=== PATIENT | male | born 1955 | race Caucasian/White ===

== ENCOUNTER 2024-09-10 13:31 | Inpatient (IN) | payer MEDICARE ==
[~2024-09-10] VITALS: Ht 175.3 cm; Wt 82.2 kg
[2024-09-10] MEDS ORDERED: ATEN-72 PO (13:40)
[2024-09-10] MEDS ORDERED: LISI-894 PO (13:40)
[2024-09-10] MEDS ORDERED: AMLO-258 PO (13:40)
[2024-09-10 14:53] LABS: HEMATOCRIT 35.9 % (41-53); HEMOGLOBIN 11.8 g/dL (13.5-17.5); MEAN CORPUSCULAR HGB CONC 32.9 G/dL (31.0-37.0); MEAN CORPUSCULAR VOLUME 88 fL (80-100); PLATELET COUNT (AUTO) 679 K/uL (150-450); RED BLOOD CELL COUNT(AUTO) 4.07 MIL/uL (4.50-5.90); RED CELL DISTRIBUTION WIDTH 14.1 % (11.5-14.5); WHITE BLOOD COUNT (AUTO) 22.6 K/uL (4.5-11.0)
[2024-09-10 15:13] LABS: CALCIUM, TOTAL 9.2 mg/dL (8.8-10.5); CREATININE 1.42 mg/dL (0.60-1.30); POTASSIUM 4.3 mmol/L (3.5-5.1)
[2024-09-10 15:16] LABS: TROPONIN I-HIGH SENSITIVITY 6 ng/L (<76)
[2024-09-10 15:17] LABS: BAND NEUTROPHILS % (MANUAL) 2 % (0-5); LYMPHOCYTES % (MANUAL) 7 % (22-44); MONOCYTES % (MANUAL) 8 % (2-9); PLATELET MORPHOLOGY COMMENT GIANT PLTS PRESENT; SEGMENTED NEUTROPHILS % 83 % (40-70); TOTAL CELLS COUNTED 100
[2024-09-10 15:18] LABS: RBC MORPHOLOGY COMMENT NORMAL RBC MORPH
[2024-09-10 15:19] LABS: ALBUMIN 2.2 g/dL (3.4-5.0); BILIRUBIN,TOTAL 0.6 mg/dL (0.1-1.0); TOTAL PROTEIN, SERUM 7.9 g/dL (6.4-8.2)
[2024-09-10 16:15] LABS: APPEARANCE,URINE CLEAR (CLEAR); BILIRUBIN,URINE NEGATIVE (NEGATIVE); COLOR,URINE YELLOW (YELLOW); GLUCOSE, URINE (UA) NEGATIVE (NEGATIVE); KETONES,URINE NEGATIVE (NEGATIVE); LEUKOCYTE ESTERASE ,URINE NEGATIVE (NEGATIVE); NITRATE,URINE NEGATIVE (NEGATIVE); OCCULT BLOOD,URINE NEGATIVE (NEGATIVE); PH,URINE 5.5 (5.0-8.0); PROTEIN,URINE TRACE mg/dL (NEGATIVE); SPECIFIC GRAVITIY, URINE 1.015 (1.003-1.030)
[2024-09-10] MEDS ORDERED: ONDANSETRON HCL 4 MG/2 ML VIAL IVP PRN (16:30)
[2024-09-10] MEDS ORDERED: 0.9% SODIUM CHLORIDE 10 ML SYRINGE IVP PRN (16:30)
[2024-09-10] MEDS: CefTRIAXone 1 GM/DEXTROSE 50 ML IV SCH (17:00)
[2024-09-10 17:04] LABS: GLUCOSE,RANDOM 121 mg/dL (70-110); LACTATE DEHYDROGENASE 124 U/L (85-227)
[2024-09-10] MEDS: SODIUM CHLORIDE 0.9% 500 ML IV ONE (17:04)
[2024-09-10] MEDS: AZITHROMYCIN 500 MG/NS 250 ML IV ONE (17:05)
[2024-09-10 17:08] LABS: LACTIC ACID 1.8 mmol/L (0.4-2.0)
[2024-09-10 18:21] VITALS: BP 115/62; PULSE 83; RESP 18; TEMP 97.7; O2SAT 97
[2024-09-10 19:27] LABS: TROPONIN I-HIGH SENSITIVITY 4 ng/L (<76)
[2024-09-10 20:17] VITALS: BP 92/61; PULSE 69; RESP 18; TEMP 98.7; O2SAT 95
[2024-09-10] MEDS: DOCUSATE SODIUM 100 MG CAPSULE PO SCH (20:49)
[2024-09-10] MEDS: RINGERS SOLUTION,LACTATED 1,000 ML IV SCH (22:28)
[2024-09-11] VITALS (15 sets, daily range): BP systolic 97–119; BP diastolic 65–74; PULSE 67–93; RESP 18–20; TEMP 97.6–98.6; O2SAT 93–99
[2024-09-11] MEDS: HEPARIN SODIUM,PORCINE 5,000 UNITS/ML VIAL SQ SCH (00:04)
[2024-09-11] MEDS: ACETAMINOPHEN 325 MG TABLET PO PRN (05:01)
[2024-09-11 06:26] LABS: BASOPHILS % (AUTO) 0.3 % (0.0-2.0); EOSINOPHILS % (AUTO) 0.3 % (1.0-6.0); HEMATOCRIT 33.3 % (41-53); LYMPHOCYTES % (AUTO) 6.1 % (22.0-44.0); MEAN CORPUSCULAR HEMOGLOBIN 29.1 pg (26.0-34.0); MEAN CORPUSCULAR HGB CONC 33.1 G/dL (31.0-37.0); MEAN CORPUSCULAR VOLUME 88 fL (80-100); MONOCYTES # (AUTO) 1.4 K/uL (0.1-1.0); MONOCYTES % (AUTO) 8.2 % (2.0-9.0); NEUTROPHILS # (AUTO) 14.5 K/uL (1.8-7.7); NEUTROPHILS % (AUTO) 85.1 % (40.0-70.0); PLATELET COUNT (AUTO) 568 K/uL (150-450); RED BLOOD CELL COUNT(AUTO) 3.77 MIL/uL (4.50-5.90); RED CELL DISTRIBUTION WIDTH 14.4 % (11.5-14.5)
[2024-09-11] MEDS: ALBUTEROL SULFATE 2.5 MG/0.5 ML NEB SOLUTION NEB PRN (06:45)
[2024-09-11] MEDS: IPRATROPIUM BROMIDE 0.5 MG/2.5 ML NEB SOLUTION NEB PRN (06:46)
[2024-09-11] MEDS: ATENOLOL 50 MG TABLET PO SCH (08:38)
[2024-09-11] MEDS: AmLODIPine BESYLATE 10 MG TABLET PO SCH (08:38)
[2024-09-11] MEDS ORDERED: NALOXONE HCL 0.4 MG/ML VIAL IVP PRN (09:00)
[2024-09-11] MEDS ORDERED: MORPHINE SULFATE 2 MG/ML SYRINGE IVP PRN (09:00)
[2024-09-11 09:37] LABS: ANION GAP 13 mmol/L (8-16); CALCIUM, TOTAL 8.7 mg/dL (8.8-10.5); CARBON DIOXIDE 21 mmol/L (22-29); CHLORIDE 93 mmol/L (98-107); CREATININE 1.14 mg/dL (0.60-1.30); GLOMERULAR FILTR. RATE CALC > 60 mL/min (>60); GLUCOSE,RANDOM 111 mg/dL (70-110); POTASSIUM 3.8 mmol/L (3.5-5.1); SODIUM SERUM 127 mmol/L (136-145); UREA NITROGEN, BLOOD 17 mg/dL (7-18)
[2024-09-11 11:00] LABS: SPECIMENTYPE,BODY FLUID THORACENTESIS
[2024-09-11] MEDS: DOXYCYCLINE HYCLATE 100 MG TABLET PO SCH (12:09)
[2024-09-11] MEDS: MethylPREDNISolone SOD SUCC 40 MG/ML VIAL IVP SCH (12:09)
[2024-09-11 13:31] LABS: APPEARANCE,SPUN,BODY FLUID CLEAR (CLEAR); APPEARANCE,UNSPUN,BODY FLUID CLOUDY (CLEAR); BASOPHILS,BODY FLUID 0 %; COLOR,BODY FLUID YELLOW (LT YELLOW); EOSINOPHILS,BF (ANAL) 0 %; LYMPHOCYTES,BODY FLUID 5 %; MONOCYTES,BODY FLUID 0 %; NEUTROPHILS,BODY FLUID 95 %; OTHER CELLS,BODY FLUID 0; TOTAL VOLUME,BODY FLUID 100 mL; WBC, BODY FLUID 405 /cu. mm.
[2024-09-11] MEDS: ACETYLCYSTEINE 10% 100 MG/ML 4 ML NEB SOLUTION NEB SCH (13:42)
[2024-09-11] MEDS: ALBUTEROL SULFATE 2.5 MG/0.5 ML NEB SOLUTION NEB SCH (13:42)
[2024-09-11] MEDS: IPRATROPIUM BROMIDE 0.5 MG/2.5 ML NEB SOLUTION NEB SCH (13:42)
[2024-09-11] MEDS: BUDESONIDE 0.5 MG/2 ML NEB SOLUTION NEB SCH (19:42)
[2024-09-12] VITALS (18 sets, daily range): BP systolic 112–127; BP diastolic 70–79; PULSE 74–92; RESP 18–20; TEMP 97.6–97.9; O2SAT 94–98
[2024-09-12] MEDS ORDERED: MAGNESIUM SULFATE 2 GM/WATER 50 ML IV PRN (11:00)
[2024-09-12] MEDS ORDERED: MAGNESIUM SULFATE 4 GM/WATER 100 ML IV PRN (11:00)
[2024-09-12 11:52] LABS: ALBUMIN 2.1 g/dL (3.4-5.0); CALCIUM, TOTAL 9.3 mg/dL (8.8-10.5); CREATININE 1.3 mg/dL (0.60-1.30); POTASSIUM 3.8 mmol/L (3.5-5.1)
[2024-09-12 13:08] LABS: TOTAL PROTEIN,BODY FLUID,REF 4.7 g/dL; URIC ACID, BODY FLUID,REF 6.3 mg/dL
[2024-09-12] MEDS: MAGNESIUM OXIDE 400 MG TABLET PO PRN (15:41)
[2024-09-13] VITALS (13 sets, daily range): BP systolic 113–135; BP diastolic 73–79; PULSE 75–95; RESP 16–20; TEMP 97.6–97.9; O2SAT 93–98
[2024-09-13] MEDS ORDERED: METO25 PO (14:43)
[2024-09-13] MEDS ORDERED: AMOX-457 PO (14:43)
[2024-09-13] MEDS ORDERED: SODIUM CHLORIDE 0.9% 500 ML IV ONE (17:40)
[2024-09-14 05:15] VITALS: BP 128/78; PULSE 71; RESP 18; TEMP 97.7; O2SAT 0
[2024-09-14 08:32] VITALS: BP 133/88; PULSE 81; RESP 20; TEMP 98.1; O2SAT 93
[2024-09-14] MEDS ORDERED: PredniSONE 20 MG TABLET PO SCH (09:45)
== END 2024-09-14 11:15 | disposition home or self-care (01) | DRG 871 ==
LOC: EMS 13:31 → EDH 16:21 → 5S 18:22 → 4E 09-12 00:15
PROVIDERS: ADMIT Internal Medicine; ATTEND Internal Medicine
PROC: 0W993ZZ Drainage of Right Pleural Cavity, Percutaneous Approach (ICD-10-PCS; principal; 2024-09-11)
PROC: 05HA33Z Insertion of Infusion Device into Left Brachial Vein, Percutaneous Approach (ICD-10-PCS; 2024-09-13)
DX: A41.9 Sepsis, unspecified organism (principal); J18.9 Pneumonia, unspecified organism; J86.9 Pyothorax without fistula; J69.0 Pneumonitis due to inhalation of food and vomit; J44.1 Chronic obstructive pulmonary disease with (acute) exacerbation; N17.9 Acute kidney failure, unspecified; J98.11 Atelectasis; E22.2 Syndrome of inappropriate secretion of antidiuretic hormone; J91.8 Pleural effusion in other conditions classified elsewhere; D35.01 Benign neoplasm of right adrenal gland; N18.9 Chronic kidney disease, unspecified; I12.9 Hypertensive chronic kidney disease with stage 1 through stage 4 chronic kidney disease, or unspecified chronic kidney disease; D64.9 Anemia, unspecified; Z87.891 Personal history of nicotine dependence; Z85.89 Personal history of malignant neoplasm of other organs and systems
CPT/HCPCS: 32555; 36245; 36569; 71045; 71250; 76937; 76942; 80048; 80053; 81003; 82040; 82465; 82570; 82945; 82947; 83605; 83615; 83735; 83880; 83986; 84145; 84157; 84478; 84484; 84560; 85025; 85730; 87040; 87075; 87205; 88108; 88305; 89051; 92610; 93005; 94640; 94667; 94668; 99285; G0238; G0378; J0456; J0696; J1644; J7030; J7040; J7120; 36415-L1; 36415-TC; 87070; J7613